=== PATIENT | female | born 1990 | race Caucasian/White ===

== ENCOUNTER → 2016-09-13 | Outpatient (REF) | LOC: WSOH 08:43 | DX: Z02.1 Encounter for pre-employment examination (principal) ==

== ENCOUNTER → 2016-09-15 | Outpatient (REF) | LOC: WSOH 10:42 | DX: Z02.89 Encounter for other administrative examinations (principal) ==

== ENCOUNTER → 2017-06-27 | Outpatient (CLI) | payer BC | LOC: SUN.DIA 10:44 | DX: O24.419 Gestational diabetes mellitus in pregnancy, unspecified control (principal); Z3A.33 33 weeks gestation of pregnancy; Z71.3 Dietary counseling and surveillance | CPT/HCPCS: G0108 ==

== ENCOUNTER → 2017-07-18 | Outpatient (CLI) | payer BC | LOC: SUN.DIA 12:10 | DX: O24.419 Gestational diabetes mellitus in pregnancy, unspecified control (principal); Z3A.36 36 weeks gestation of pregnancy; Z71.3 Dietary counseling and surveillance | CPT/HCPCS: G0108 ==

== ENCOUNTER 2017-08-18 22:32 | Inpatient (IN) | payer BC, OTHER ==
[~2017-08-18] VITALS: Ht 154.9 cm; Wt 72.7 kg
[~2017-08-18 22:32] MED LIST changes: -IBU600 MG PO; -PERCOCET 325 MG1 TA2 PO
[2017-08-18 23:00] VITALS: BP 116/72; PULSE 110
[2017-08-19] VITALS (45 sets, daily range): BP systolic 90–177; BP diastolic 50–78; PULSE 98–128; TEMP 97.6–99.8
[2017-08-19 01:00] LABS: BASO % 0.2 % (0.0-2.0); EOS % 0.1 % (0-4.0); GRAN # 14.5 (1.4-6.5); GRAN % 84.9 % (42.2-75.2); HEMOGLOBIN 12.1 g/dl (12.5-16.0); LYMPH # 1.2 (1.2-3.4); LYMPH % 7.1 % (20.0-51.0); MEAN CELL VOLUME 90 fl (80.0-100.0); MEAN CORPUSCULAR HEMOGLOBIN 32 pg (27.0-31.0); MEAN CORPUSCULAR HGB CONC 35 g/dl (33.0-37.0); MEAN PLATELET VOLUME 10.2 fl (7.4-10.4); MONO # 1.2 (0.1-0.6); MONO % 6.7 % (1.7-9.3); PLATELET COUNT 135 K/mm3 (130-400); RED BLOOD COUNT 3.81 M/mm3 (4.10-5.30); REDCELL DISTRIBUTION WIDTH-CV 13.2 % (11.5-14.5)
[2017-08-19 01:02] LABS: HEMATOCRIT 34.3 % (37.0-47.0)
[2017-08-20 01:00] VITALS: BP 91/63; PULSE 95; TEMP 97.5
[2017-08-20 08:39] VITALS: BP 102/65; PULSE 100; TEMP 97.9
[2017-08-20] MEDS ORDERED: PERCOCET 325 MG1 TA2 PO (08:54)
[2017-08-20] MEDS ORDERED: IBU600 MG PO (08:54)
[2017-08-20 16:05] VITALS: BP 104/60; PULSE 82; TEMP 97.7
[2017-08-20 22:40] VITALS: BP 104/58; PULSE 90; TEMP 97.8
[2017-08-21 09:26] VITALS: BP 98/54; PULSE 81; TEMP 98.4
== END 2017-08-21 10:45 | disposition home or self-care (01) | DRG 775 ==
LOC: LDRO 22:32 → OB 23:49 → LDR 23:49 → OB 08-19 11:51
PROVIDERS: Obstetrics & Gynecology
PROC: 10E0XZZ Delivery of Products of Conception, External Approach (ICD-10-PCS; principal; 2017-08-19)
PROC: 0KQM0ZZ Repair Perineum Muscle, Open Approach (ICD-10-PCS; 2017-08-19)
DX: O70.1 Second degree perineal laceration during delivery (principal); Z37.0 Single live birth; O24.420 Gestational diabetes mellitus in childbirth, diet controlled; Z3A.39 39 weeks gestation of pregnancy
CPT/HCPCS: J1200; J2590; J7120

== ENCOUNTER → 2017-08-18 | Outpatient (CLI) | payer BC, OTHER ==
[~2017-08-18] VITALS: Ht 157.5 cm; Wt 74.1 kg
[~2017-08-18] MED LIST: IBU600 MG PO; PERCOCET 325 MG1 TA2 PO; PRENATAL MVI
[2017-08-18 19:00] VITALS: BP 129/79; PULSE 123; TEMP 98.6
[2017-08-18 19:30] VITALS: BP 113/69; PULSE 96
[2017-08-18 20:05] VITALS: TEMP 97.9
== END ==
LOC: LDRO 18:13
DX: O62.9 Abnormality of forces of labor, unspecified (principal); Z3A.39 39 weeks gestation of pregnancy

== ENCOUNTER → 2017-08-27 | Outpatient (CLI) | payer BC, OTHER ==
[~2017-08-27] MED LIST changes: +IBU600 MG PO; +PERCOCET 325 MG1 TA2 PO
== END ==
LOC: LAC 12:40
DX: Z39.1 Encounter for care and examination of lactating mother (principal); Z71.89 Other specified counseling

== ENCOUNTER → 2017-09-11 | Outpatient (CLI) | payer BC, OTHER | LOC: LAC 10:50 | DX: Z39.1 Encounter for care and examination of lactating mother (principal); Z71.89 Other specified counseling ==

== ENCOUNTER → 2017-09-25 | Outpatient (CLI) | payer BC, OTHER | LOC: LAC 10:13 | DX: Z39.1 Encounter for care and examination of lactating mother (principal); Z71.89 Other specified counseling ==

== ENCOUNTER → 2017-10-02 | Outpatient (CLI) | payer BC, OTHER | LOC: LAC 10:05 | DX: Z39.1 Encounter for care and examination of lactating mother (principal); Z71.89 Other specified counseling ==

== ENCOUNTER → 2017-10-09 | Outpatient (CLI) | payer BC, OTHER | LOC: LAC 10:24 | DX: Z39.1 Encounter for care and examination of lactating mother (principal); Z71.89 Other specified counseling ==

== ENCOUNTER → 2017-10-16 | Outpatient (CLI) | payer BC, OTHER | LOC: LAC 10:03 | DX: Z39.1 Encounter for care and examination of lactating mother (principal); Z71.89 Other specified counseling ==

== ENCOUNTER → 2017-10-30 | Outpatient (CLI) | payer BC, OTHER | LOC: OLC 10:02 | DX: Z39.1 Encounter for care and examination of lactating mother (principal); Z71.89 Other specified counseling ==

== ENCOUNTER 2018-10-31 12:22 | Emergency (ER) | payer BC, OTHER ==
[~2018-10-31] VITALS: Ht 154.9 cm; Wt 76.4 kg
[2018-10-31 12:43] VITALS: TEMP 98.9
[2018-10-31 13:03] LABS: COLLECTION METHOD CLEAN CATCH
[2018-10-31 13:11] LABS: MUCOUS Present /lpf; PH 6 (5-8); SQUAMOUS EPITHELIAL 0-2 /hpf; URINE APPEARANCE Clear; URINE BACTERIA None Seen /hpf; URINE BILIRUBIN Negative (NEGATIVE); URINE BLOOD Negative (NEGATIVE); URINE COLOR Yellow; URINE GLUCOSE Negative (NEGATIVE); URINE KETONE Negative (NEGATIVE); URINE LEUKOCYTE ESTERASE Negative (NEGATIVE); URINE NITRATE Negative (NEGATIVE); URINE PROTEIN(semi-quant) 1+ (NEGATIVE); URINE RBC 0-2 /hpf; URINE UROBILINOGEN Negative (NEGATIVE)
--- NOTE | 2018-10-31 13:42 | NUR ---
1321- EFM and TOCO on and tracing. Pt is a G2L1, 31+2. Denies complications with . Denies VB, LOF, or contractions.
[2018-10-31] MEDS ORDERED: ZOFRAN ODT4 MG PO (14:09)
[2018-10-31 14:28] VITALS: BP 124/70; PULSE 124
== END 2018-10-31 14:32 | disposition home or self-care (01) ==
LOC: COL.ER 12:22
PROVIDERS: Emergency Medicine
DX: O21.2 Late vomiting of pregnancy (principal); O26.893 Other specified pregnancy related conditions, third trimester; Z3A.31 31 weeks gestation of pregnancy; E86.0 Dehydration; Z88.2 Allergy status to sulfonamides
CPT/HCPCS: J2405; J7030

== ENCOUNTER 2018-12-27 07:15 | Inpatient (IN) | payer BC, OTHER ==
[~2018-12-27] VITALS: Ht 157.5 cm; Wt 80.9 kg
[2018-12-27] VITALS (36 sets, daily range): BP systolic 97–129; BP diastolic 57–85; PULSE 80–113; TEMP 97.6–98.6
[~2018-12-27 07:15] MED LIST changes: +ZOFRAN ODT4 MG PO
--- NOTE | 2018-12-27 07:20 | NUR ---
Patient ambulatory to LR6, changed into gown, FHR/TOCO monitors placed. Patient denies any regular contractions/vaginal bleeding/leaking of fluid. 0750: IV started in right hand per Darrion ZULETA, andrei to obtain labs and lab called, LR infusing. 0830: Dr. Yeboah at bedside and assessing patient and FHR strip. 0835: SVE per physician-3/-2 and AROM with clear fluid noted.
[2018-12-27] MEDS ORDERED: CONCEPT DHA1 CAP PO (08:00)
[2018-12-27 08:31] LABS: HEMOGLOBIN 10.5 g/dl (12.5-16.0); MEAN CELL VOLUME 90 fl (80.0-100.0); MEAN CORPUSCULAR HEMOGLOBIN 30 pg (27.0-31.0); MEAN CORPUSCULAR HGB CONC 33 g/dl (33.0-37.0); MEAN PLATELET VOLUME 10.3 fl (7.4-10.4); PLATELET COUNT 155 K/mm3 (130-400); RED BLOOD COUNT 3.54 M/mm3 (4.10-5.30); REDCELL DISTRIBUTION WIDTH-CV 14.6 % (11.5-14.5)
[2018-12-27 08:34] LABS: HEMATOCRIT 31.8 % (37.0-47.0)
[2018-12-27 09:09] LABS: BAND 5 % (0-10); LYMPHOCYTE 17 % (20.0-51.0); METAMYELOCYTE 1 % (0-0); NEUTROPHILS 70 % (42.0-75.2); PLATELET ESTIMATE NORMAL (NORMAL)
--- NOTE | 2018-12-27 10:00 | NUR ---
Patient on birthing ball and difficulty tracing FHR due to maternal position and monitor being adjusted. 1015: FHR intermittently tracing maternal heart rate. Monitor being adjusted. 1115: SVE-5/80/-2 and bloody show noted.
--- NOTE | 2018-12-27 11:45 | NUR ---
Patient requesting epidural and Tesha Lopez RN notified. 1150: Patient sitting up for placement for epidural and Kala RN at bedside. Difficulty tracing FHR due to maternal position. 1158: Single shot given and patient tolerates well. 1203: Patient repositioned and more comfortable. 1220: Recurrent subtle late decelerations noted and patient tolerates well. 1230: Benitez catheter placed per [facility] RN student and patient tolerates well. SVE-6-7/90/-2. 1233: FHR decreasing to 60-90bpm for approx. 3-4 minutes. Patient turned right lateral and left lateral during this time. 1240: FHR increasing to 110-115bpm for approx. 8 minutes. During this time patient turned right lateral/left lateral/ and fluid bolus started. Patient right lateral with left leg resting in stirrup. 1245: FHR gradually increasing to 120-130bpm with moderate variability. Dr. Yeboah called and updated. No new orders given.
--- NOTE | 2018-12-27 14:36 | NUR ---
FHR monitor tracing maternal heart rate at this time. 1440: at bedside assessing patient and FHR strip. SVE-per physician , Dr. Yeboah orders to start getting set up and begin to push with patient. 1445: Benitez catheter removed and patient tolerates well. FHR tracing variable declerations. Dr. Yeboah orders to have patient labor down as the he does another delivery. 1500: Patient sitting up with legs down. Patient leaning forward and FHR monitor tracing maternal heartrate. 1512: Patient set up for vaginal delivery and Dr. Yeboah at bedside. Patient pushes with one contraction 1515: Spontaneous vaginal delivery of head followed by body, infant to patients abdomen and E.Edna RN assumes care of infant. Cord clamped by Dr. Yeboah and cut by FOB. Cord blood obtained. Dr. Yeboah begins to repair laceration. 1521: Spontaneous delivery of placenta and pitocin bolus started per protocol. Fundal massage done/firm/bleeding WNL. Patient repositioned and ice pack to perineum. Plan of care discussed
[2018-12-28 07:40] VITALS: BP 121/78; PULSE 98; TEMP 98.2
[2018-12-28] MEDS ORDERED: IBU600 MG PO (10:12)
--- NOTE | 2018-12-28 10:18 | NUR ---
Congratulated the family on their new baby.
[2018-12-28 11:15] VITALS: BP 120/78; PULSE 93; TEMP 97.9
[2018-12-28 16:40] VITALS: BP 125/67; PULSE 86; TEMP 98.1
[2018-12-28 22:00] VITALS: BP 124/77; PULSE 88; TEMP 97.9
[2018-12-29 07:00] VITALS: BP 122/56; PULSE 60; TEMP 98
[2018-12-29] MEDS ORDERED: PERCOCET 325 MG1 TA2 PO (07:38)
== END 2018-12-29 10:50 | disposition home or self-care (01) | DRG 807 ==
LOC: LDR 07:15 → OB 17:57
PROVIDERS: ADMIT Obstetrics & Gynecology
PROC: 10E0XZZ Delivery of Products of Conception, External Approach (ICD-10-PCS; principal; 2018-12-27)
PROC: 3E033VJ Introduction of Other Hormone into Peripheral Vein, Percutaneous Approach (ICD-10-PCS; 2018-12-27)
PROC: 10907ZC Drainage of Amniotic Fluid, Therapeutic from Products of Conception, Via Natural or Artificial Opening (ICD-10-PCS; 2018-12-27)
PROC: 0HQ9XZZ Repair Perineum Skin, External Approach (ICD-10-PCS; 2018-12-27)
PROC: 0UQMXZZ Repair Vulva, External Approach (ICD-10-PCS; 2018-12-27)
DX: O99.02 Anemia complicating childbirth (principal); Z37.0 Single live birth; D64.9 Anemia, unspecified; O70.0 First degree perineal laceration during delivery; O71.82 Other specified trauma to perineum and vulva; O69.81X0 Labor and delivery complicated by cord around neck, without compression, not applicable or unspecified; Z3A.39 39 weeks gestation of pregnancy; Z23 Encounter for immunization
CPT/HCPCS: J2590; J2795; J7120